=== PATIENT | male | born 1985 ===

== ENCOUNTER 2017-07-02 21:44 | Emergency (ER) | payer OTHER ==
[2017-07-02] MEDS ORDERED: Sodium Chloride 0.9% 1,000 ML IV ONE (22:20)
--- NOTE | 2017-07-02 22:23 | C.PDOC ---
History Of Present Illness 31 year old male, with no significant past medical history, who presents to the emergency department for evaluation of left thigh painful mass or swelling onset x1 week ago. Patient describes it as a possible insect bite and states it has gradually worsen with more swelling, pain and redness around. Patient saw MD yesterday and was started on Bactrim without any improvement. Otherwise, he denies fever, chills, trauma or injury, sore throat, dyspnea, wheezing, SOB, cough, abdominal pain, nausea, vomit, denies weakness, sensory or vascular deficit to left leg. No further medical complaints. Ambulate to Ed for evaluation, not in any apparent distress. PMD: Sherif Adkins Time Seen by Provider: 07/02/17 21:58 Chief Complaint (Nursing): Abnormal Skin Integrity History Per: Patient History/Exam Limitations: no limitations Onset/Duration Of Symptoms: Days (x1 week), Worse Since (onset) Current Symptoms Are (Timing): Still Present Location Of Injury: Left: Leg (thigh) Quality Of Symptoms: Painful, Swollen (redness) Past Medical History Reviewed: Historical Data, Nursing Documentation, Vital Signs Vital Signs: Last Vital Signs Temp 99.6 F 07/02/17 22:09 Pulse 90 07/02/17 22:09 Resp 20 07/02/17 22:09 BP 147/83 07/02/17 22:09 Pulse Ox 99 07/03/17 01:07 - Medical History PMH: No Chronic Diseases Surgical History: No Surg Hx Family History: States: No Known Family Hx - Social History Hx Alcohol Use: No Hx Substance Use: No - Immunization History Hx Tetanus Toxoid Vaccination: No Hx Influenza Vaccination: No Hx Pneumococcal Vaccination: No Review Of Systems Except As Marked, All Systems Reviewed And Found Negative. Constitutional: Negative for: Fever, Chills, Other (trauma) ENT: Negative for: Throat Pain Respiratory: Negative for: Cough Gastrointestinal: Negative for: Nausea, Vomiting, Abdominal Pain Musculoskeletal: Positive for: Leg Pain (left thigh mass or swelling) Neurological: Negative for: Weakness Physical Exam - Physical Exam Appears: Well, Non-toxic, No Acute Distress Skin: Normal Color, Warm, Dry, Rash (Left lateral thigh tender mass 2cm diameter with surrounding erythema, proximal streaking extend to Left posterior knee.) Head: Normacephalic Eye(s): bilateral: PERRL Nose: No Flaring, No Discharge Oral Mucosa: Moist Throat: No Erythema Neck: Trachea Midline, Supple Cardiovascular: Rhythm Regular Respiratory: No Decreased Breath Sounds, No Accessory Muscle Use, No Stridor, No Wheezing Gastrointestinal/Abdominal: Soft, No Tenderness, No Distention, No Guarding, No Rebound Back: No CVA Tenderness, No Vertebral Tenderness Extremity: Normal ROM (LLE), No Calf Tenderness, Capillary Refill (less than 2sec to left foot), No Deformity, No Swelling Neurological/Psych: Oriented x3, Normal Speech, Normal Motor, Normal Sensation, Normal Reflexes ED Course And Treatment - Laboratory Results Result Diagrams: 07/02/17 22:53 07/02/17 22:53 Lab Interpretation: No Acute Changes O2 Sat by Pulse Oximetry: 99 (RA) Pulse Ox Interpretation: Normal Progress Note: Initial Plan: BMP, CBC w/ differential, SOLU-medrol 125mg IV, Sodium Chloride 1,000 ml IV 1,000 mls/hr, Vancomycin 1gm/NS 200 ml IVPB, Vancomycin Inj 1gm NS 0.9% 250 ml IVPB, Blood culture, Urinalysis. Pt was OBS in ED for 3hours and reports moderate improvement in pain. On re-evaluation, pt is afebrile, hemodynamicaly stable. Non-toxic. Ambulatory in ED. PulsEOx 99 % RA. ENT: no acute findings, uvual midline, no edema. Neck: Supple, (-) meningeal sign. Lungs: CTA B/L, BS equal B/L. Abd: benign, (-) guaridng, (-) rebound. LLE: tender mass left lateral thigh with erythema that appears significant smaller now after ED tx. FAROM, no neurovascular deficits. Neurologicaly intact. Blood work review, appear snormal, no leukocytosis. Pt has clinical findings c/w Left thight cellulitis with early abscess. Pt advised on course of ds. Advised to F/u with PMD in 2 days for re-eval. retrun to ED at any time if any worsening or new changes. Disposition Counseled Patient/Family Regarding: Studies Performed, Diagnosis, Need For Followup, Rx Given - Disposition Referrals: [facility] [Outside] Disposition: HOME/ ROUTINE Disposition Time: 01:01 Condition: STABLE Additional Instructions: Warm salty water compresses to area twice daily for 5 minutes Take medication as prescribed Continue Bactrim as prescribed by PMD Follow up with PMD in 2 days for re-evaluation. return to ED if any worsening or new changes. Prescriptions: Cefdinir [Omnicef] 300 mg PO BID #14 cap Prednisone [Deltasone] 40 mg PO DAILY #8 tablet Instructions: Cellulitis (Skin Infection), Adult (DC) Forms: [facility] (Macedonian) - Clinical Impression Clinical Impression: Cellulitis, Abscess - Scribe Statement The provider has reviewed the documentation as recorded by the Scribe Jarrell Coleman
[2017-07-02] MEDS ORDERED: Vancomycin 1 gm/NS 200 ml 1 GM/200 ML BAG IVPB STA (22:30)
[2017-07-02 22:55] LABS: HEMOGLOBIN 14.3 g/dL (12.0-18.0); MEAN CELL VOLUME 84.2 fL (80.0-94.0); MEAN CORPUSCULAR HEMOGLOBIN 29.7 pg (27.0-31.0); MEAN CORPUSCULAR HGB CONC 35.3 g/dL (33.0-37.0); RBC 4.8 Mil/uL (4.40-5.90); RED CELL DISTRIBUTION WIDTH 13.9 % (11.5-14.5); WHITE BLOOD COUNT 9.3 K/uL (4.8-10.8)
[2017-07-02 22:56] LABS: BASO # 0.1 K/uL (0.0-0.2); EOS # 0.1 K/uL (0.0-0.7); EOS % 0.5 % (0.0-4.0); LYMPH # 2.5 K/uL (1.0-4.3); LYMPH % 26.4 % (20.0-40.0); MEAN PLATELET VOLUME 7.5 fL (7.2-11.7); MONO # 0.6 K/uL (0.0-0.8); NEUT # 6.1 K/uL (1.8-7.0); NEUT % 65.1 % (50.0-75.0); NRBC % 0.1 % (0.0-2.0)
[2017-07-02 23:07] LABS: BLOOD UREA NITROGEN 12 mg/dL (9-20); CALCIUM 8.5 mg/dl (8.6-10.4); GFR AFRICAN-AMERICAN > 60; GFR NON-AFRICAN AMERICAN > 60
[2017-07-02 23:58] LABS: SQUAMOUS EPITHIAL 1 /hpf (0-5); URINE BILIRUBIN NEGATIVE (NEGATIVE); URINE BLOOD NEGATIVE (NEGATIVE); URINE CLARITY Clear (Clear); URINE COLOR Straw (YELLOW); URINE GLUCOSE (UA) NORMAL (Normal); URINE LEUKOCYTE ESTERASE NEG Leu/uL (Negative); URINE PROTEIN NEGATIVE (NEGATIVE); URINE UROBILINOGEN NORMAL mg/dL (0.2-1.0)
[2017-07-03] MEDS ORDERED: Piperacill/Tazo 4.5gm in Dex 4.5 GM/100 ML BAG IVPB STA (00:18)
[2017-07-03 02:24] VITALS: BP 101/62; PULSE 84; RESP 18; TEMP 99; O2SAT 98
== END 2017-07-03 02:29 | disposition home or self-care (01) ==
LOC: C.ER 21:44
DX: L03.116 Cellulitis of left lower limb (principal); L02.416 Cutaneous abscess of left lower limb
CPT/HCPCS: 80048; 81001; 85025; 87040; 96374; 96375; 99284; J2930; J3370; J7040